=== PATIENT | female | born 1950 | race Caucasian/White ===

== ENCOUNTER 2021-08-18 07:01 | Observation (INO) | payer MEDICARE ==
[2021-08-11 16:26] LABS: BASOPHILS % (AUTO) 0.4 % (0-1); EOSINOPHILS # (AUTO) 0.1 X10'3 (0-0.9); EOSINOPHILS % (AUTO) 0.6 % (0-6); LYMPHOCYTES # (AUTO) 2.4 X10'3 (1.1-4.8); LYMPHOCYTES % (AUTO) 24.2 % (21-51); MEAN CORPUSCULAR HEMOGLOBIN 27.3 PG (27.0-31.0); MEAN CORPUSCULAR HGB CONC 32.1 g/dL (33.0-36.5); MEAN CORPUSCULAR VOLUME 85.1 FL (78-98); MEAN PLATELET VOLUME 7.5 FL (7.4-10.4); MONOCYTES # (AUTO) 0.7 X10'3 (0-0.9); MONOCYTES % (AUTO) 7.3 % (2-12); NEUTROPHILS # (AUTO) 6.8 X10'3 (1.8-7.7); NEUTROPHILS % (AUTO) 67.5 % (42-75); PRE OP HEMATOCRIT 35.3 % (35.0-45.0); PRE OP HEMOGLOBIN 11.3 g/dL (12.0-16.0); PRE OP PLATELET COUNT 377 X10'3 (140-440); RED BLOOD COUNT 4.15 X10'6 (4.20-5.60); RED CELL DISTRIBUTION WIDTH 15.9 % (11.5-14.5)
[2021-08-11 16:53] LABS: ALBUMIN 3.4 G/DL (3.4-5.0); ALBUMIN/GLOBULIN RATIO 0.9 (1.1-1.5); ALKALINE PHOSPHATASE 77 IU/L (46-116); BLOOD UREA NITROGEN 13 MG/DL (7-18); BUN/CREATININE RATIO 17.3 (6.6-38.0); CALCIUM 9.5 MG/DL (8.5-10.1); CHLORIDE 103 MMOL/L (99-107); CREATININE 0.75 MG/DL (0.40-0.90); PRE OP ALT 30 U/L (30-65); PRE OP ANION GAP 8 (8-16); PRE OP AST 28 U/L (10-37); PRE OP BILIRUB, TOTAL 0.5 MG/DL (0.0-1.0); PRE OP GLUCOSE 82 MG/DL (70-104); PRE OP POTASSIUM 3.8 MMOL/L (3.4-5.1); PRE OP SODIUM 138 MMOL/L (135-145); TOTAL CARBON DIOXIDE 26.6 MMOL/L (24-32); TOTAL PROTEIN 7.4 G/DL (6.4-8.2); eGFR 76 ML/MIN
[2021-08-11 16:59] LABS: PRE OP PROTIME 10.7 SECONDS (9.0-12.0)
[2021-08-18] VITALS (20 sets, daily range): BP systolic 126–149; BP diastolic 67–80
[~2021-08-18] VITALS: Ht 167.6 cm; Wt 103.0 kg
[~2021-08-18 07:01] MED LIST: AMLO5TAB16 PO; ASPI81TA52 PO; BACL-11 PO; BIOT1CAP3 PO; CINN500C16 PO; DULO-31 PO; GLIP5TAB26 PO; GREE1CAP PO; LANS15TA5 PO; LOSA1TAB39 PO; METF-438 PO; MULT-620 PO; NABU-139 PO; SIMV-42 PO; cocaine 4% topical solution 4ml bottle ONE; diazepam 5mg tablet PO ONE; famotidine 20mg tablet PO ONE; lidocaine 1%/epinephrine 1:100,000 inj. 50ml multi-dose vial ONE; mupirocin 2% ointment 22GM ONE; oxymetazoline 15 ML nasal spray NS ONE; ringers solution, lacted 1,000 ML IV SCH
[2021-08-18] MEDS: oxymetazoline 15 ML nasal spray NS SCH ×3 (08:13→20:42)
[2021-08-18] MEDS ORDERED: propofol inj 20 ML IV ONE (10:10)
[2021-08-18] MEDS ORDERED: FENTANYL CITRATE/PF 50 MCG/1 ML VIAL ONE (10:10)
[2021-08-18] MEDS ORDERED: midazolam 1 mg/ML 2ml injection ONE (10:10)
[2021-08-18] MEDS ORDERED: dexamethasone sod phosphate 10mg/ml inj ONE (10:17)
[2021-08-18] MEDS ORDERED: sevoflurane 250ml liquid IH ONE (10:17)
[2021-08-18] MEDS ORDERED: ringers solution, lacted 1,000 ML IV SCH (11:05)
[2021-08-18] MEDS ORDERED: meperidine/PF 25mg/ml syringe IV PRN ×3 (11:05)
[2021-08-18] MEDS ORDERED: ondansetron/PF 4mg/2ml inj IV PRN ×2 (11:05→14:50)
[2021-08-18] MEDS ORDERED: labetalol 5mg/ml 20ml inj. IV PRN (11:05)
[2021-08-18] MEDS ORDERED: HYDROmorphone/PF 0.2 MG/ML SYRINGE IV PRN ×2 (11:05)
[2021-08-18] MEDS ORDERED: proCHLORperazine 10 MG/2 ml inj IV PRN (11:05)
[2021-08-18] MEDS ORDERED: ceFAZolin 1000mg inj ONE ×2 (11:27)
[2021-08-18] MEDS ORDERED: rocuronium 10mg/ml inj IV ONE (11:27)
[2021-08-18] MEDS ORDERED: ondansetron/PF 4mg/2ml inj ONE (11:28)
[2021-08-18] MEDS ORDERED: sugammadex 200mg/2ml injection IV ONE (11:33)
--- NOTE | 2021-08-18 11:47 | NUR ---
Received from OR via [facility] , accompanied by Anesthesiologist JODY and report given by Anesthesiolgist. , COTTONOIDS INPLACE BILATERALLY,
[2021-08-18] MEDS ORDERED: salt irrigation nasal spray 45 ML SPRAY NS PRN (12:30)
--- NOTE | 2021-08-18 12:55 | NUR ---
SOME CHANGED NOTED ON EKG MACHINE, 12 LEAD OBTAINED, DR VERA NOTIFIED, NO CHANGED FROM PREVIOUS EKG, LEFT BUNDLE BLOCK PRESENT. APPROX 10 MIN AFTER EKG COMPLETED, PT WENT IN TO SVT WITH A RATE OF 160, SPONTANEOUSLY BROKE WITH NO INTERVENTIONS, DR RAYMOND NOTIFIED AND DR VERA NOTIFIED. PER ANESTHESIA, RECOMMENDATION TO OBSERVE PT ON TELI FOR 24 HOURS. HOSPITALIST CALLED AND DR RAYMOND CALLED AND GIVE HER CELL NUMBER FOR ORDERS..
--- NOTE | 2021-08-18 14:05 | NUR ---
ANESTHESIA AT BEDSIDE, ORDERS RECEIVED TO DO CARDIAC ENZYMES
[2021-08-18] MEDS ORDERED: morphine 2 MG/ML inj. syringe IV PRN (14:50)
[2021-08-18] MEDS ORDERED: magnesium Cl slow-release 64mg tablet PO PRN (14:50)
[2021-08-18] MEDS ORDERED: potassium Cl 20 mEq SR tablet PO PRN ×2 (14:50)
[2021-08-18] MEDS ORDERED: magnesium 4gm in 100ml NS 100 ML IV PRN (14:50)
[2021-08-18] MEDS ORDERED: magnesium 2GM in 50ml NS 50 ML IV PRN (14:50)
[2021-08-18] MEDS ORDERED: PERFLUTREN PROTEIN-A MICROSPHR (Optison) 0.22 MG/ML 3ML VIAL IV ONE (14:50)
[2021-08-18] MEDS ORDERED: potassium CL 10mEq/100ml bag 100 ML IV PRN (14:50)
[2021-08-18] MEDS ORDERED: normal saline 1000ml 1,000 ML IV SCH (14:50)
[2021-08-18 16:19] LABS: BASOPHILS % (AUTO) 0 % (0-1); EOSINOPHILS % (AUTO) 0 % (0-6); HEMATOCRIT 34.3 % (35.0-45.0); HEMOGLOBIN 11.4 g/dl (12.0-16.0); LYMPHOCYTES # (AUTO) 0.8 X10'3 (1.1-4.8); MEAN CORPUSCULAR HEMOGLOBIN 28.1 PG (27.0-31.0); MEAN CORPUSCULAR HGB CONC 33.1 g/dL (33.0-36.5); MEAN PLATELET VOLUME 7.7 FL (7.4-10.4); MONOCYTES # (AUTO) 0.1 X10'3 (0-0.9); MONOCYTES % (AUTO) 1.1 % (2-12); NEUTROPHILS # (AUTO) 10.8 X10'3 (1.8-7.7); NEUTROPHILS % (AUTO) 91.9 % (42-75); PLATELET COUNT 356 X10'3 (140-440); RED BLOOD COUNT 4.04 X10'6 (4.20-5.60); RED CELL DISTRIBUTION WIDTH 16.3 % (11.5-14.5); WHITE BLOOD COUNT 11.8 X10'3 (4.5-11.0)
[2021-08-18 16:36] LABS: ALBUMIN 3.3 G/DL (3.4-5.0); ANION GAP 11 (8-16); BLOOD UREA NITROGEN 16 MG/DL (7-18); CALCIUM 9.4 MG/DL (8.5-10.1); CHLORIDE 102 MMOL/L (99-107); CREATININE 0.84 MG/DL (0.40-0.90); GLUCOSE 199 MG/DL (70-104); POTASSIUM 4.3 MMOL/L (3.5-5.1); SODIUM 139 MMOL/L (135-145); TOTAL CARBON DIOXIDE 25.6 MMOL/L (24-32); eGFR 67 ML/MIN
[2021-08-18] MEDS: acetaminophen 325mg tablet PO PRN (17:47)
[2021-08-18] MEDS ORDERED: DULO30CA52 PO (18:02)
[2021-08-18] MEDS: K and/or MAG REPLACEMENT MC SCH (20:00)
--- NOTE | 2021-08-18 21:00 | NUR ---
Paged Dr. Curtis for Insulin protocol blood sugar level is [phone]
[2021-08-18] MEDS ORDERED: dextrose 50%-water 50ml dispensing syringe IV PRN ×2 (21:40)
[2021-08-18] MEDS ORDERED: regadenoson 0.4mg/5ml syringe IV PRN (21:40)
[2021-08-18] MEDS ORDERED: MESSAGE TO PHARMACY PO ONE (21:40)
[2021-08-18] MEDS ORDERED: aminophylline 250mg/10ml inj. IV PRN (21:40)
[2021-08-18] MEDS ORDERED: DEXTROSE 15 GM of carb/4 tabs (each vial/BOTTLE has 4 tablets) PO PRN ×2 (21:40)
[2021-08-18] MEDS ORDERED: insulin Lispro (HumaLOG) vial - multi-dose SQ SCH (21:40)
[2021-08-18] MEDS ORDERED: nitroGLYCERIN 0.4mg SUBLingual tab SL PRN (21:40)
[2021-08-18] MEDS ORDERED: metoprolol tartrate 1mg/ml inj IV PRN (21:40)
[2021-08-18] MEDS ORDERED: glucagon, human recombinant 1mg kit SUBCUT PRN (21:40)
[2021-08-18] MEDS: insulin glargine (Lantus) pen - multi-dose SQ SCH (22:28)
[2021-08-19] VITALS (21 sets, daily range): BP systolic 115–156; BP diastolic 52–97
[2021-08-19] MEDS: acetaminophen 325mg tablet PO PRN (03:16)
[2021-08-19 03:29] LABS: BASOPHILS % (AUTO) 0.4 % (0-1); EOSINOPHILS % (AUTO) 0 % (0-6); HEMATOCRIT 34.9 % (35.0-45.0); HEMOGLOBIN 11.4 g/dl (12.0-16.0); LYMPHOCYTES # (AUTO) 1.2 X10'3 (1.1-4.8); LYMPHOCYTES % (AUTO) 11.4 % (21-51); MEAN CORPUSCULAR HGB CONC 32.6 g/dL (33.0-36.5); MEAN PLATELET VOLUME 7.7 FL (7.4-10.4); MONOCYTES # (AUTO) 0.5 X10'3 (0-0.9); MONOCYTES % (AUTO) 5.1 % (2-12); NEUTROPHILS # (AUTO) 8.7 X10'3 (1.8-7.7); NEUTROPHILS % (AUTO) 83.1 % (42-75); PLATELET COUNT 369 X10'3 (140-440); RED BLOOD COUNT 4.06 X10'6 (4.20-5.60); RED CELL DISTRIBUTION WIDTH 16.4 % (11.5-14.5); WHITE BLOOD COUNT 10.4 X10'3 (4.5-11.0)
[2021-08-19 03:43] LABS: ALBUMIN 3.1 G/DL (3.4-5.0); ANION GAP 11 (8-16); BLOOD UREA NITROGEN 15 MG/DL (7-18); BUN/CREATININE RATIO 18.8 (6.6-38.0); CALCIUM 9.4 MG/DL (8.5-10.1); CHLORIDE 102 MMOL/L (99-107); GLUCOSE 162 MG/DL (70-104); MAGNESIUM 2.1 MG/DL (1.5-2.4); SODIUM 138 MMOL/L (135-145); TOTAL CARBON DIOXIDE 25.5 MMOL/L (24-32); eGFR 71 ML/MIN
[2021-08-19 03:45] LABS: POTASSIUM 4.3 MMOL/L (3.5-5.1)
--- NOTE | 2021-08-19 06:36 | NUR ---
Problems reprioritized. Patient report given, questions answered & plan of care reviewed with Barbra RN .
[2021-08-19] MEDS: atorvastatin 10mg tablet PO SCH (07:52)
[2021-08-19] MEDS: duloxetine 30mg CAPSULE.DR PO SCH ×2 (07:53→20:58)
[2021-08-19] MEDS: amLODIPine 5mg tablet PO SCH (08:00)
[2021-08-19] MEDS: K and/or MAG REPLACEMENT MC SCH ×2 (08:00→20:00)
[2021-08-19] MEDS: HYDROchlorothiazide 25mg tablet PO SCH (08:00)
[2021-08-19] MEDS: oxymetazoline 15 ML nasal spray NS SCH ×2 (08:00→21:03)
[2021-08-19] MEDS: aspirin 81mg, enteric-coated 1 TAB TABLET.DR PO SCH (08:00)
--- NOTE | 2021-08-19 11:11 | NUR ---
DM Consult: Noted pt w/ hx of DM and A1c of 7.0. dietary internship provided verbal and written DM diet education and RD contact information. Will continue to follow. Addendum: 08/19/21 at 1111 by Alok Juarez - Research And Development Director RD Amended: Links added. Addendum: 08/19/21 at [address] I have reviewed and agree with note by Research And Development Director. ELANA Rondon
[2021-08-19] MEDS ORDERED: diphenhydrAMINE 25mg capsule PO ONE (11:25)
[2021-08-19] MEDS ORDERED: LOP25T PO (11:59)
[2021-08-19] MEDS ORDERED: fentaNYL/PF 50MCG/1 ML 2ML syringe ONE (14:00)
[2021-08-19] MEDS ORDERED: LIDOcaine 1% (10mg/ml)w/preservative inj. 20ml MDV ONE (14:00)
[2021-08-19] MEDS ORDERED: iohexol 350 MG/ML 50ML vial IV ONE (14:00)
[2021-08-19] MEDS ORDERED: iohexol 350MG/ML 100ml bottle IV ONE (14:00)
[2021-08-19] MEDS ORDERED: midazolam 1 mg/ML 2ml injection ONE (14:00)
[2021-08-19] MEDS ORDERED: baclofen 10mg tablet PO PRN (16:00)
[2021-08-19] MEDS ORDERED: HYDROcodone/acetaminophen 10/325mg tab PO PRN (16:05)
[2021-08-19] MEDS ORDERED: OXAZEpam 15mg capsule PO PRN (16:05)
[2021-08-19] MEDS ORDERED: ondansetron/PF 4mg/2ml inj IV PRN (16:05)
[2021-08-19] MEDS ORDERED: proCHLORperazine 10 MG/2 ml inj IV PRN (16:05)
[2021-08-19] MEDS ORDERED: HYDROcodone/acetaminophen 5mg/325mg tablet PO PRN (16:05)
[2021-08-19] MEDS: normal saline 1000ml 1,000 ML IV SCH ×3 (16:05→18:00)
[2021-08-19] MEDS: losartan 50mg tablet PO SCH (17:22)
--- NOTE | 2021-08-19 18:30 | NUR ---
Patient Report received. Patient S/P angioplasty. Continuous VS stable. Patient is laying continues to lay flat. Right groin tender. Dressing clean dry and intact. No hematoma or tenderness noted. Patient denies low back pain. All safety measures in place. Will continue to monitor
--- NOTE | 2021-08-19 19:11 | NUR ---
Problems reprioritized. Patient report given Rao Alba, questions answered & plan of care reviewed with .
[2021-08-19] MEDS ORDERED: metoprolol tartrate 25mg tablet PO SCH (20:00)
--- NOTE | 2021-08-19 20:55 | NUR ---
Patient started to experiencing CP. Hospitalist Kirsten paged. Stat EKG ordered. 2 nitro SL tablet given. Pain subsided after second nitro tablet. MD reviewed EKG . NO ST changes . All needs met at this time. Will continue to monitor
[2021-08-19] MEDS: nitroGLYCERIN 0.4mg SUBLingual tab SL PRN ×2 (20:56→21:01)
[2021-08-19] MEDS: metoprolol tartrate 25mg tablet PO SCH (20:58)
[2021-08-20 02:00] VITALS: BP 119/60
--- NOTE | 2021-08-20 02:00 | NUR ---
Patient ambulated to the bathroom. Right groin remains clean dry and intact. All safety measures in place
[2021-08-20] MEDS: normal saline 1000ml 1,000 ML IV SCH (02:39)
[2021-08-20 06:00] VITALS: BP 125/50
[2021-08-20 06:03] LABS: ALBUMIN 2.9 G/DL (3.4-5.0); ANION GAP 6 (8-16); BLOOD UREA NITROGEN 15 MG/DL (7-18); BUN/CREATININE RATIO 23.8 (6.6-38.0); CALCIUM 8.8 MG/DL (8.5-10.1); CHLORIDE 104 MMOL/L (99-107); CREATININE 0.63 MG/DL (0.40-0.90); GLUCOSE 106 MG/DL (70-104); MAGNESIUM 2.1 MG/DL (1.5-2.4); POTASSIUM 4.2 MMOL/L (3.5-5.1); SODIUM 137 MMOL/L (135-145); TOTAL CARBON DIOXIDE 26.6 MMOL/L (24-32); eGFR > 90 ML/MIN
[2021-08-20 06:15] LABS: BASOPHILS % (AUTO) 0.3 % (0-1); EOSINOPHILS % (AUTO) 0.5 % (0-6); HEMATOCRIT 33.8 % (35.0-45.0); HEMOGLOBIN 11.1 g/dl (12.0-16.0); LYMPHOCYTES # (AUTO) 2.7 X10'3 (1.1-4.8); LYMPHOCYTES % (AUTO) 28.7 % (21-51); MEAN CORPUSCULAR HEMOGLOBIN 28.7 PG (27.0-31.0); MEAN CORPUSCULAR HGB CONC 32.8 g/dL (33.0-36.5); MEAN CORPUSCULAR VOLUME 87.4 FL (78-98); MEAN PLATELET VOLUME 7.6 FL (7.4-10.4); MONOCYTES # (AUTO) 0.7 X10'3 (0-0.9); MONOCYTES % (AUTO) 7.3 % (2-12); NEUTROPHILS # (AUTO) 5.9 X10'3 (1.8-7.7); NEUTROPHILS % (AUTO) 63.2 % (42-75); PLATELET COUNT 344 X10'3 (140-440); RED BLOOD COUNT 3.86 X10'6 (4.20-5.60); RED CELL DISTRIBUTION WIDTH 16.2 % (11.5-14.5); WHITE BLOOD COUNT 9.4 X10'3 (4.5-11.0)
--- NOTE | 2021-08-20 06:27 | NUR ---
Problems reprioritized. Patient report given, questions answered & plan of care reviewed with TETO Mckenna.
[2021-08-20] MEDS: K and/or MAG REPLACEMENT MC SCH ×2 (08:00→20:00)
[2021-08-20] MEDS: oxymetazoline 15 ML nasal spray NS SCH ×2 (08:00→20:57)
[2021-08-20] MEDS: losartan 50mg tablet PO SCH (08:00)
[2021-08-20] MEDS ORDERED: non-formulary drug (Biotin 1 CAP) PO SCH (08:00)
[2021-08-20] MEDS ORDERED: CINNAMON BARK PO SCH (08:00)
[2021-08-20] MEDS: duloxetine 30mg CAPSULE.DR PO SCH ×2 (09:46→20:43)
[2021-08-20] MEDS: HYDROchlorothiazide 25mg tablet PO SCH (09:46)
[2021-08-20] MEDS: aspirin 81mg, enteric-coated 1 TAB TABLET.DR PO SCH (09:47)
[2021-08-20] MEDS: atorvastatin 10mg tablet PO SCH (09:50)
[2021-08-20] MEDS: amLODIPine 5mg tablet PO SCH (09:51)
[2021-08-20] MEDS: multivitamins, therapeutics tablet PO SCH (09:52)
[2021-08-20] MEDS: lansoprazole 15mg solutab PO SCH (09:53)
[2021-08-20] MEDS: metoprolol tartrate 25mg tablet PO SCH ×2 (09:53→20:45)
[2021-08-20] MEDS: metFORMIN 500mg tablet PO SCH ×2 (09:54→17:41)
[2021-08-20 11:00] VITALS: BP 124/60
[2021-08-20] MEDS ORDERED: NITR0.4T48 SL (11:42)
[2021-08-20 15:00] VITALS: BP 123/56
[2021-08-20 18:00] VITALS: BP 133/64
--- NOTE | 2021-08-20 18:09 | NUR ---
Problems reprioritized. Patient report given, questions answered & plan of care reviewed with Mora.
--- NOTE | 2021-08-20 18:10 | NUR ---
Patient in room PCU [id number]. I have received report from TETO Mckenna and had the opportunity to ask questions and assume patient care.
[2021-08-20] MEDS: docusate sod 100mg capsule PO SCH (20:44)
[2021-08-20 22:00] VITALS: BP 129/67
[2021-08-20] MEDS: insulin glargine (Lantus) pen - multi-dose SQ SCH (22:02)
[2021-08-21 02:00] VITALS: BP 134/71
[2021-08-21 06:00] VITALS: BP 128/63
[2021-08-21 06:20] LABS: BASOPHILS % (AUTO) 0.3 % (0-1); EOSINOPHILS # (AUTO) 0.1 X10'3 (0-0.9); EOSINOPHILS % (AUTO) 0.8 % (0-6); HEMATOCRIT 33.4 % (35.0-45.0); HEMOGLOBIN 10.9 g/dl (12.0-16.0); LYMPHOCYTES # (AUTO) 2.5 X10'3 (1.1-4.8); MEAN CORPUSCULAR HEMOGLOBIN 28.5 PG (27.0-31.0); MEAN CORPUSCULAR HGB CONC 32.8 g/dL (33.0-36.5); MEAN CORPUSCULAR VOLUME 86.9 FL (78-98); MEAN PLATELET VOLUME 7.6 FL (7.4-10.4); MONOCYTES # (AUTO) 0.7 X10'3 (0-0.9); NEUTROPHILS # (AUTO) 6.5 X10'3 (1.8-7.7); NEUTROPHILS % (AUTO) 65.9 % (42-75); PLATELET COUNT 325 X10'3 (140-440); RED BLOOD COUNT 3.84 X10'6 (4.20-5.60); RED CELL DISTRIBUTION WIDTH 16.2 % (11.5-14.5); WHITE BLOOD COUNT 9.8 X10'3 (4.5-11.0)
[2021-08-21 06:27] LABS: ALBUMIN 2.8 G/DL (3.4-5.0); ANION GAP 10 (8-16); BLOOD UREA NITROGEN 15 MG/DL (7-18); BUN/CREATININE RATIO 19.2 (6.6-38.0); CALCIUM 8.9 MG/DL (8.5-10.1); CHLORIDE 102 MMOL/L (99-107); CREATININE 0.78 MG/DL (0.40-0.90); GLUCOSE 133 MG/DL (70-104); MAGNESIUM 1.9 MG/DL (1.5-2.4); POTASSIUM 3.7 MMOL/L (3.5-5.1); SODIUM 137 MMOL/L (135-145); eGFR 73 ML/MIN
--- NOTE | 2021-08-21 06:30 | NUR ---
Problems reprioritized. Patient report given, questions answered & plan of care reviewed with TETO Murphy.
[2021-08-21] MEDS: lansoprazole 15mg solutab PO SCH (09:22)
[2021-08-21] MEDS: metFORMIN 500mg tablet PO SCH (09:22)
[2021-08-21] MEDS: amLODIPine 5mg tablet PO SCH (09:23)
[2021-08-21] MEDS: losartan 50mg tablet PO SCH (09:24)
[2021-08-21 09:25] VITALS: BP_SYST 128
[2021-08-21] MEDS: multivitamins, therapeutics tablet PO SCH (09:25)
[2021-08-21] MEDS: aspirin 81mg, enteric-coated 1 TAB TABLET.DR PO SCH (09:25)
[2021-08-21] MEDS: docusate sod 100mg capsule PO SCH (09:25)
[2021-08-21] MEDS: HYDROchlorothiazide 25mg tablet PO SCH (09:25)
[2021-08-21] MEDS: duloxetine 30mg CAPSULE.DR PO SCH (09:25)
[2021-08-21] MEDS: atorvastatin 10mg tablet PO SCH (09:25)
[2021-08-21] MEDS: metoprolol tartrate 25mg tablet PO SCH (09:25)
[2021-08-21] MEDS: oxymetazoline 15 ML nasal spray NS SCH (09:26)
== END 2021-08-21 13:24 | disposition home or self-care (01) ==
LOC: PAS 07:01 → PCU 3S 14:51 → OBSVTOIN 08-20 11:25 → INTOOBSV 08-20 11:25
PROVIDERS: ADMIT Internal Medicine; ATTEND Internal Medicine
DX: J34.2 Deviated nasal septum (principal); Z20.822 Contact with and (suspected) exposure to COVID-19; J34.3 Hypertrophy of nasal turbinates; J32.9 Chronic sinusitis, unspecified; I20.0 Unstable angina; I47.1 Supraventricular tachycardia; E11.9 Type 2 diabetes mellitus without complications; I10 Essential (primary) hypertension; E78.5 Hyperlipidemia, unspecified; K21.9 Gastro-esophageal reflux disease without esophagitis; F32.A Depression, unspecified; F41.0 Panic disorder [episodic paroxysmal anxiety]; Z90.710 Acquired absence of both cervix and uterus; Z79.82 Long term (current) use of aspirin; Z79.899 Other long term (current) drug therapy
CPT/HCPCS: 30140; 30520; 31259; 31267; 36415; 61782; 78452; 80048; 80053; 82948; 83036; 83735; 84484; 85025; 85576; 85610; 85730; 87635; 93005; 93017; 93306; 93458; A6402; A9500; C1769; C9250; C9803; G0378; J0690; J1100; J1644; J1815; J2250; J2405; J2704; J2785; J3010; J3490; J7030; J7040; J7120; Q9967; U0003; U0005; 88300; 88304; 88311; 99152; 99153; A4618; A6258; A7000

== ENCOUNTER 2021-09-25 07:52 | Day surgery (SDC) | payer MEDICARE ==
[~2021-09-25] VITALS: Ht 167.6 cm; Wt 103.1 kg
[2021-09-25] VITALS (10 sets, daily range): BP systolic 124–152; BP diastolic 58–72
[~2021-09-25 07:52] MED LIST changes: -AMLO5TAB16 PO; +DULO30CA52 PO; -GREE1CAP PO; +LOP25T PO; -NABU-139 PO; +NITR0.4T48 SL; -cocaine 4% topical solution 4ml bottle ONE; -diazepam 5mg tablet PO ONE; -famotidine 20mg tablet PO ONE; -lidocaine 1%/epinephrine 1:100,000 inj. 50ml multi-dose vial ONE; -mupirocin 2% ointment 22GM ONE; -oxymetazoline 15 ML nasal spray NS ONE; -ringers solution, lacted 1,000 ML IV SCH
[2021-09-25] MEDS ORDERED: normal saline 1,000 ML IV SCH (08:15)
[2021-09-25] MEDS ORDERED: diphenhydrAMINE 25mg capsule PO PRN (08:15)
[2021-09-25 09:09] LABS: BASOPHILS % (AUTO) 0.2 % (0-1); EOSINOPHILS # (AUTO) 0.2 X10'3 (0-0.9); EOSINOPHILS % (AUTO) 1.9 % (0-6); HEMATOCRIT 33.9 % (35.0-45.0); HEMOGLOBIN 11.2 g/dl (12.0-16.0); LYMPHOCYTES # (AUTO) 2.5 X10'3 (1.1-4.8); MEAN CORPUSCULAR HGB CONC 33.1 g/dL (33.0-36.5); MEAN CORPUSCULAR VOLUME 84.7 FL (78-98); MEAN PLATELET VOLUME 7.5 FL (7.4-10.4); MONOCYTES # (AUTO) 0.6 X10'3 (0-0.9); MONOCYTES % (AUTO) 5.7 % (2-12); NEUTROPHILS # (AUTO) 6.4 X10'3 (1.8-7.7); NEUTROPHILS % (AUTO) 66.2 % (42-75); PLATELET COUNT 371 X10'3 (140-440); RED BLOOD COUNT 4.01 X10'6 (4.20-5.60); RED CELL DISTRIBUTION WIDTH 14.9 % (11.5-14.5); WHITE BLOOD COUNT 9.7 X10'3 (4.5-11.0)
[2021-09-25] MEDS ORDERED: METO25TA6 PO (09:17)
[2021-09-25] MEDS ORDERED: NABU-139 PO (09:17)
[2021-09-25] MEDS ORDERED: AMA1T PO (09:17)
[2021-09-25 09:19] LABS: ALBUMIN 3.1 G/DL (3.4-5.0); ANION GAP 12 (8-16); BLOOD UREA NITROGEN 19 MG/DL (7-18); BUN/CREATININE RATIO 18.8 (6.6-38.0); CALCIUM 9.2 MG/DL (8.5-10.1); CHLORIDE 100 MMOL/L (99-107); CREATININE 1.01 MG/DL (0.40-0.90); GLUCOSE 121 MG/DL (70-104); MAGNESIUM 1.8 MG/DL (1.5-2.4); SODIUM 137 MMOL/L (135-145); eGFR 54 ML/MIN
[2021-09-25] MEDS ORDERED: iohexol 350 MG/ML 50ML vial IV ONE (10:40)
[2021-09-25] MEDS ORDERED: verapamil 2.5 mg/ml inj IV ONE (10:40)
[2021-09-25] MEDS ORDERED: iohexol 350MG/ML 100ml bottle IV ONE (10:40)
[2021-09-25] MEDS ORDERED: midazolam 1 mg/ML 2ml injection ONE ×3 (10:40→12:22)
[2021-09-25] MEDS ORDERED: iohexol 350 MG/1 ML 200ml bottle ONE (10:40)
[2021-09-25] MEDS ORDERED: LIDOcaine 1% (10mg/ml)w/preservative inj. 20ml MDV ONE (10:40)
[2021-09-25] MEDS ORDERED: heparin 1,000unit/ml 10ml vial 10 ML ONE ×2 (10:40→12:53)
[2021-09-25] MEDS ORDERED: fentaNYL/PF 50MCG/1 ML 2ML syringe ONE (10:40)
[2021-09-25] MEDS ORDERED: nitroGLYCERIN-Tridil 50MG/D5W 250 ML IV ONE (10:40)
[2021-09-25] MEDS ORDERED: ketorolac tromethamine 15mg/ml inj. IV ONE (12:35)
[2021-09-25] MEDS ORDERED: HYDROmorphone 1 mg/ml syringe ONE (12:49)
[2021-09-25] MEDS ORDERED: ticagrelor 90mg tablet ONE (12:55)
[2021-09-25] MEDS ORDERED: ondansetron/PF 4mg/2ml inj IV PRN (13:30)
[2021-09-25] MEDS ORDERED: acetaminophen 325mg tablet PO PRN (13:30)
[2021-09-25] MEDS ORDERED: HYDROcodone/acetaminophen 10/325mg tab PO PRN (13:30)
[2021-09-25] MEDS ORDERED: HYDROcodone/acetaminophen 5mg/325mg tablet PO PRN (13:30)
[2021-09-25] MEDS ORDERED: proCHLORperazine 10 MG/2 ml inj IV PRN (13:30)
== END 2021-09-25 17:13 | disposition home or self-care (01) ==
LOC: SSTAY O 07:52
PROVIDERS: ATTEND Internal Medicine Cardiovascular Disease
DX: I25.118 Atherosclerotic heart disease of native coronary artery with other forms of angina pectoris (principal); I44.7 Left bundle-branch block, unspecified; E78.5 Hyperlipidemia, unspecified; I10 Essential (primary) hypertension; E11.9 Type 2 diabetes mellitus without complications; G47.30 Sleep apnea, unspecified; J45.909 Unspecified asthma, uncomplicated; Z79.899 Other long term (current) drug therapy; Z79.84 Long term (current) use of oral hypoglycemic drugs; Z79.82 Long term (current) use of aspirin
CPT/HCPCS: 36415; 80048; 82948; 83735; 85025; 85610; 93005; 99152; 99153; C1725; C1751; C1769; C1874; C1894; C9600; C9601; J1170; J1644; J2250; J3010; J3490; J7030; Q0163; Q9967; A4620; A6258

== ENCOUNTER 2022-03-12 08:17 | Day surgery (SDC) | payer MEDICARE ==
[2022-03-12] VITALS (9 sets, daily range): BP systolic 137–161; BP diastolic 59–72
[~2022-03-12] VITALS: Ht 167.6 cm; Wt 104.9 kg
[~2022-03-12 08:17] MED LIST changes: +AMA1T PO; -BACL-11 PO; -BIOT1CAP3 PO; -CINN500C16 PO; -GLIP5TAB26 PO; -LOP25T PO; +METO25TA6 PO; -MULT-620 PO; +NABU-139 PO; -NITR0.4T48 SL
[2022-03-12] MEDS ORDERED: normal saline 1,000 ML IV SCH ×2 (08:35→09:10)
[2022-03-12] MEDS ORDERED: diphenhydrAMINE 25mg capsule PO PRN ×2 (08:35→09:10)
[2022-03-12] MEDS ORDERED: sodium bicarbonate (8.4%) inj. 150 ML in dextrose 5%-water 1,000 ML IV ONE ×2 (08:35→09:10)
[2022-03-12] MEDS ORDERED: dextrose 50%-water 50ml dispensing syringe IV ONE ×2 (09:17→11:41)
[2022-03-12] MEDS ORDERED: CLOP75TA34 PO (09:43)
[2022-03-12] MEDS ORDERED: ALBU18HF2 INH (09:43)
[2022-03-12] MEDS ORDERED: LOSA100T57 PO (09:43)
[2022-03-12] MEDS ORDERED: GLIP5TAB26 PO (09:43)
[2022-03-12] MEDS ORDERED: BUDE10.22 PO (09:43)
[2022-03-12] MEDS ORDERED: NITR0.4T48 SL (09:43)
[2022-03-12] MEDS ORDERED: BACL-11 PO (09:44)
[2022-03-12 09:45] LABS: BASOPHILS % (AUTO) 0.3 % (0-1); EOSINOPHILS # (AUTO) 0.1 X10'3 (0-0.9); EOSINOPHILS % (AUTO) 1.5 % (0-6); HEMATOCRIT 34.9 % (35.0-45.0); HEMOGLOBIN 11.4 g/dl (12.0-16.0); LYMPHOCYTES % (AUTO) 23.1 % (21-51); MEAN CORPUSCULAR HGB CONC 32.7 g/dL (33.0-36.5); MEAN CORPUSCULAR VOLUME 85.7 FL (78-98); MEAN PLATELET VOLUME 7.7 FL (7.4-10.4); MONOCYTES # (AUTO) 0.6 X10'3 (0-0.9); MONOCYTES % (AUTO) 7.1 % (2-12); NEUTROPHILS # (AUTO) 5.9 X10'3 (1.8-7.7); PLATELET COUNT 372 X10'3 (140-440); RED BLOOD COUNT 4.07 X10'6 (4.20-5.60); RED CELL DISTRIBUTION WIDTH 14.8 % (11.5-14.5); WHITE BLOOD COUNT 8.7 X10'3 (4.5-11.0)
[2022-03-12 09:53] LABS: ALBUMIN 3.6 G/DL (3.4-5.0); ANION GAP 11 (8-16); BLOOD UREA NITROGEN 10 MG/DL (7-18); BUN/CREATININE RATIO 10.5 (6.6-38.0); CALCIUM 9.7 MG/DL (8.5-10.1); CHLORIDE 102 MMOL/L (99-107); CREATININE 0.95 MG/DL (0.40-0.90); GLUCOSE 93 MG/DL (70-104); POTASSIUM 4.2 MMOL/L (3.5-5.1); SODIUM 139 MMOL/L (135-145); TOTAL CARBON DIOXIDE 26.5 MMOL/L (24-32); eGFR 58 ML/MIN
[2022-03-12] MEDS ORDERED: iohexol 350MG/ML 100ml bottle IV ONE ×2 (11:22→11:23)
[2022-03-12] MEDS ORDERED: midazolam 1 mg/ML 2ml injection ONE ×2 (11:22→12:17)
[2022-03-12] MEDS ORDERED: LIDOcaine 1% 30ml preserv. free vial ONE (11:22)
[2022-03-12] MEDS ORDERED: heparin 1,000unit/ml 10ml vial 10 ML ONE (11:22)
[2022-03-12] MEDS ORDERED: fentaNYL/PF 50MCG/1 ML 2ML syringe ONE (11:22)
[2022-03-12] MEDS ORDERED: ondansetron/PF 4mg/2ml inj IV PRN (13:15)
[2022-03-12] MEDS ORDERED: HYDROcodone/acetaminophen 10/325mg tab PO PRN (13:15)
[2022-03-12] MEDS ORDERED: HYDROcodone/acetaminophen 5mg/325mg tablet PO PRN (13:15)
[2022-03-12] MEDS ORDERED: normal saline 1000ml 1,000 ML IV SCH (13:15)
[2022-03-12] MEDS ORDERED: proCHLORperazine 10 MG/2 ml inj IV PRN (13:15)
== END 2022-03-12 16:00 | disposition home or self-care (01) ==
LOC: SSTAY O 08:17
PROVIDERS: ATTEND Internal Medicine Cardiovascular Disease
DX: R94.39 Abnormal result of other cardiovascular function study (principal); I44.7 Left bundle-branch block, unspecified; E78.5 Hyperlipidemia, unspecified; I10 Essential (primary) hypertension; I25.10 Atherosclerotic heart disease of native coronary artery without angina pectoris; G47.30 Sleep apnea, unspecified; Z79.01 Long term (current) use of anticoagulants; Z79.899 Other long term (current) drug therapy; E11.9 Type 2 diabetes mellitus without complications; J45.909 Unspecified asthma, uncomplicated; Z98.890 Other specified postprocedural states; G89.29 Other chronic pain; Z98.51 Tubal ligation status
CPT/HCPCS: 36415; 80048; 82948; 83735; 85025; 85610; 93005; 93458; 99152; 99153; C1760; C1769; C1894; J1644; J2250; J3010; J3490; J7030; Q0163; Q9967; A4620; A6258